=== PATIENT | male | born 1955 | race Caucasian/White ===

== ENCOUNTER 2019-06-04 15:34 | Emergency (ER) | payer MEDICAID ==
[~2019-06-04] VITALS: Ht 177.8 cm; Wt 86.4 kg
[2019-06-04 16:45] LABS: BASOPHILS % (AUTO) 0.2 % (0-1); EOSINOPHILS # (AUTO) 0.2 X10'3 (0-0.9); EOSINOPHILS % (AUTO) 3.7 % (0-6); HEMATOCRIT 39.1 % (42.0-52.0); HEMOGLOBIN 13.7 g/dl (14.0-17.9); LYMPHOCYTES # (AUTO) 1.1 X10'3 (1.1-4.8); LYMPHOCYTES % (AUTO) 22.9 % (21-51); MEAN CORPUSCULAR HEMOGLOBIN 31.5 PG (27.0-31.0); MEAN CORPUSCULAR VOLUME 89.8 FL (78-98); MEAN PLATELET VOLUME 8.6 FL (7.4-10.4); MONOCYTES # (AUTO) 0.4 X10'3 (0-0.9); MONOCYTES % (AUTO) 8.7 % (2-12); NEUTROPHILS # (AUTO) 3.1 X10'3 (1.8-7.7); NEUTROPHILS % (AUTO) 64.5 % (42-75); PLATELET COUNT 198 X10'3 (140-440); RED BLOOD COUNT 4.35 X10'6 (4.70-6.10); RED CELL DISTRIBUTION WIDTH 13.1 % (11.5-14.5); WHITE BLOOD COUNT 4.7 X10'3 (4.5-11.0)
[2019-06-04 16:49] LABS: ALANINE AMINOTRANSFERASE 21 U/L (12-78); ALBUMIN 3.8 G/DL (3.4-5.0); ALBUMIN/GLOBULIN RATIO 1.1 (1.1-1.5); ALKALINE PHOSPHATASE 102 IU/L (46-116); ANION GAP 9 (8-16); ASPARTATE AMINO TRANSFERASE 11 U/L (10-37); BILIRUBIN,TOTAL 0.6 MG/DL (0.1-1.0); BLOOD UREA NITROGEN 38 MG/DL (7-18); BUN/CREATININE RATIO 25.2 (5.4-32.0); CALCIUM 8.5 MG/DL (8.5-10.1); CHLORIDE 104 MMOL/L (99-107); CREATININE 1.51 MG/DL (0.60-1.10); GLUCOSE 399 MG/DL (70-104); POTASSIUM 4.2 MMOL/L (3.5-5.1); SODIUM 135 MMOL/L (135-145); TOTAL CARBON DIOXIDE 22.5 MMOL/L (24-32); TOTAL PROTEIN 7.2 G/DL (6.4-8.2); eGFR 47 ML/MIN
[2019-06-04] MEDS ORDERED: insulin regular, human 10 units/0.1 ml syringe IV ONE ×2 (17:25→18:10)
[2019-06-04] MEDS ORDERED: normal saline 1000ML IV soln IVB ONE (17:25)
[2019-06-04] MEDS ORDERED: CefTRIAXone/D5W-Rocephin 1gm 50 ML IV ONE (17:30)
[2019-06-04 17:36] LABS: CLARITY,URINE SLIGHTLY CLOUDY (Clear); COLOR,URINE YELLOW (Yellow); GLUCOSE, URINE >=1000 mg/dl (Neg); KETONES,URINE NEGATIVE (Neg); LEUKOCYTE ESTERASE ,URINE NEGATIVE (Neg); NITRITES, URINE NEGATIVE (Neg); OCCULT BLOOD,URINE NEGATIVE (Neg); PROTEIN,URINE NEGATIVE (Neg); UROBILINOGEN,URINE 0.2 E.U/dL (0.2-1.0)
[2019-06-04 17:40] LABS: UA COLLECTION TYPE VOIDED
[2019-06-04 17:48] LABS: BACTERIA,URINE 2+ /HPF (Neg); RBC,URINE 0-2 /HPF (0-2); SQUAMOUS EPITHELIAL CELL,UR FEW /LPF (FEW)
[2019-06-04 17:49] LABS: HYALINE CASTS >30 /LPF (NEGATIVE)
[2019-06-04] MEDS ORDERED: SULF1TAB49 PO (18:22)
[2019-06-04] MEDS ORDERED: GLYB5TAB7 PO (18:40)
--- NOTE | 2019-06-04 18:41 | NUR ---
PT ASKED FOR GLYBURIDE 5 MG BID PRESCRIPTION, DR PITTS NOTIFIED.
[2019-06-04 18:43] VITALS: BP 123/76
== END 2019-06-04 18:45 | disposition home or self-care (01) ==
LOC: ER 15:36
DX: L03.115 Cellulitis of right lower limb (principal); Z79.899 Other long term (current) drug therapy; Z72.0 Tobacco use; Z79.2 Long term (current) use of antibiotics
CPT/HCPCS: 36415; 73630; 80053; 81001; 82948; 85025; 85610; 87088; 96365; 96375; 99284; J0696; J1815; J7030